=== PATIENT | female | born 1985 | race Caucasian/White ===

== ENCOUNTER 2025-07-21 23:29 | Emergency (ER) | payer SELFPAY ==
[2025-07-21 23:40] VITALS: BP 192/11; PULSE 87; RESP 18; TEMP 36.2; O2SAT 100; BMI 36.0
--- NOTE | 2025-07-31 02:54 | ED.DENTAL ---
HPI - Dental/Oral General Chief complaint: Dental/Oral Stated complaint: Severe Rt Side Tooth/gum pain Time Seen by Provider: 07/22/25 01:35 Source: patient Mode of arrival: Ambulatory Related Data Allergies Allergy/AdvReac Type Severity Reaction Status Date / Time No Known Drug Allergies Allergy Verified 07/21/25 23:40 Patient History Social History Smoking Status: Current every day smoker Smoking Status: Current every day smoker tobacco type: cigarettes Exam Initial Vital Signs Initial Vital Signs: Vital Signs Temperature 97.2 F L 07/21/25 23:40 Pulse Rate 87 07/21/25 23:40 Respiratory Rate 18 07/21/25 23:40 Blood Pressure 192/11 H 07/21/25 23:40 Pulse Oximetry 100 07/21/25 23:40 Oxygen Delivery Method Room Air 07/21/25 23:40 Discharge Plan Departure Patient Disposition: Left Without Being Seen Clinical Impression: Patient left without being seen
== END 2025-07-22 01:36 | disposition left against medical advice (07) ==
PROVIDERS: Emergency Provider Family Medicine
CPT/HCPCS: 99281